=== PATIENT | male | born 1945 | race Caucasian/White ===

== ENCOUNTER 2020-05-27 17:01 | Inpatient (IN) | payer BC ==
[~2020-05-27] VITALS: Ht 177.8 cm; Wt 112.2 kg
--- NOTE | ~2020-05-27 | EKG ---
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
[2020-05-27 17:02] VITALS: BP 99/35
[2020-05-27 17:48] LABS: BE(vivo) 0.3 mmol/L (-2 to +3); HCO3 23.4 mmol/L (22.0-26.0); PO2 158.6 mmHg (80.0-100.0); pH 7.482 (7.360-7.450); sO2 99.2 % (92.0-98.0)
[2020-05-27 19:41] LABS: HEMATOCRIT 24.2 % (42.0-52.0); HEMOGLOBIN 7.9 gm/dL (14.0-18.0); MCH 31.2 pg (26.0-34.0); MCHC 32.7 g/dL (28.0-37.0); MCV 95.2 fL (80.0-100.0); PLATELET COUNT 158 thou/uL (150-400); RBC 2.55 mil/uL (4.50-6.00); RDW 19.3 % (10.5-14.5); WBC 8.8 thou/uL (4.0-11.0)
[2020-05-27 19:49] LABS: CALCIUM 8.2 mg/dL (8.5-10.1); CREATININE 3.4 mg/dL (0.7-1.3); POTASSIUM 3.4 mmol/L (3.5-5.1)
[2020-05-27 19:52] LABS: INR 2.1; PROTIME 21.8 Seconds (9.3-11.4)
[2020-05-27 19:55] LABS: ALBUMIN 1.5 g/dL (3.4-5.0); TOTAL BILIRUBIN 0.8 mg/dL (0.2-1.0); TOTAL PROTEIN 4.6 g/dL (6.4-8.2)
[2020-05-27 20:16] LABS: ANISOCYTOSIS 1+
[2020-05-27 23:16] VITALS: BP 108/49
--- NOTE | 2020-05-27 23:24 | NUR ---
ATTEMPTING TO GIVE REPORT TO 3W, NO ANSWER.
--- NOTE | 2020-05-27 23:29 | NUR ---
CONTINUING TO ATTEMPT TO CALL REPORT PLACED ON HOLD
[2020-05-28] VITALS (72 sets, daily range): BP systolic 72–153; BP diastolic 33–78
--- NOTE | 2020-05-28 03:28 | NUR ---
PT AOX1, TO SELF. PT HARD OF HEARING, NOTED TO HAVE IMPROVED RESPONSES WHEN SPOKEN INTO RIGHT EAR. PT DENIES PAIN AND SOB WHILE ON 3L O2. PT RESTING IN BED THROUGHOUT SHIFT, FREQUENT REPOSITIONING ENCOURAGED. PT NOTED TO HAVE PRESSURE TO BILATERAL HEELS, EXCORIATION TO SACRUM, OPENING WOUND ON ABDOMEN, AND DRAINAGE FROM PENIS. PHOTOGRAPHS IN CHART, WOUND CARE CONSULTED. PT REMAINS ON TELE, IRREGULAR RHYTHM, AFIB NOTED. THIS NURSE INSTRUCTED BY INDEPENDENT CONSULTANT TO CONTACT INDEPENDENT CONSULTANT IF PT HR GETS ABOVE 115-120S. ENCOURAGED PT TO NOTIFY STAFF FOR ALL NEEDS. CALL LIGHT WITHIN REACH, BED ALARM ON, BED IN LOWEST POSITION, FREQUENT MONITORING WILL CONTINUE.
[2020-05-28 05:45] LABS: HEMATOCRIT 25.6 % (42.0-52.0); HEMOGLOBIN 8.3 gm/dL (14.0-18.0); MCH 30.7 pg (26.0-34.0); MCHC 32.3 g/dL (28.0-37.0); MCV 95.1 fL (80.0-100.0); RBC 2.69 mil/uL (4.50-6.00); RDW 19.7 % (10.5-14.5); WBC 8.4 thou/uL (4.0-11.0)
[2020-05-28 06:02] LABS: CALCIUM 8.3 mg/dL (8.5-10.1); CREATININE 3.8 mg/dL (0.7-1.3); POTASSIUM 3.5 mmol/L (3.5-5.1)
--- NOTE | 2020-05-28 06:31 | NUR ---
Pt transferred from 3 to ICU room 239 @ 0600. 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 Pt was pale and unresponsive. Pt's sugar check was in the 20s and BPs sys in the 70s. Pt was given an amp of D50 and put on a bolus of D10 and rechecked in the 120s BS.Upon arrival pt was hypotensive in the 70-80s systolic with a map in the 50s. Sierra VASQUEZ was called for orders for levofed and notified of critical glucose from the blood draw before the Rapid Response. Pt on Levofed and currently being stabilized. Continue to monitor and plan of care
--- NOTE | 2020-05-28 06:33 | NUR ---
NOTIFIED BY LAB THAT PT WAS VERY LETHARGIC AND DIAPHORETIC, MINIMALLY RESPONSIVE. CALLED PATIENT ACCESS MANAGER, CHECKED BLOOD SUGAR, RESULT WAS "LOW" AND RECHECK WAS 22, LABS ALREADY DRAWN JUST PRIOR TO BS CHECK. AMP D50 PUSHED. BP LOW, NO TEMP, O2 SATS 98%, AFIB IN 90'S ON TELE. AFTER D50, STARTED D10 TO GRAVITY; PT MORE RESPONSIVE, ANSWERING SOME QUESTIONS. BP 70'S/30'S; ORDER FOR ICU TRANSFER, BEDSIDE REPORT GIVEN TO KIRSTY.
--- NOTE | 2020-05-28 07:13 | NUR ---
weather forecaster called for decreased loc, see weather forecaster flowsheet.
--- NOTE | 2020-05-28 09:58 | EKG ---
[facility] [place] [address] ELECTROCARDIOGRAM REPORT Name: ROSCOE GEORGE Room #: 239-P ADM IN M.R.#: [id number] Admission: 05/27/20 Attend Phys: Jean Garvey MD Discharge: Date of : 49 Report #: [id number] THIS REPORT FOR: cc: Aldo Benitez MD, Srinath MD Lundgren,Neri Mendoza MD [facility] ~ THIS REPORT FOR: //name// [facility] ED Test Date: 2020-05-27 Test Time: 17:54:01 Pat Name: ROSCOE GEORGE Department: Room: 239 Gender: M Ged [facility] 1945 Requested By: Ronnie Lizama Order Number: [id number] MD: Neri Da Silva Measurements Intervals [place] Rate: 100 P: [place]: QRS: 17 QRSD: 89 T: 156 QT: 328 QTc: 423 Interpretive Statements Atrial fibrillation RSR' in V1 or V2, right VCD Nonspecific ST and T wave abnormality No previous ECG available for comparison Electronically Signed On 05-28-2020 9:58:07 CDT by Neri Da Silva [email or web address] <ELECTRONICALLY SIGNED> By: Neri Da Silva MD, FACC 05/28/20 0958 1754 1754 Neri Da Silva MD, FAC /EPI
--- NOTE | 2020-05-28 10:02 | EKG ---
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 : 1945 Requested By: Neri Da Silva Order Number: [id number] MD: Neri Da Silva Measurements Intervals [place] Rate: 99 P: [place]: QRS: 21 QRSD: 94 T: 160 QT: 325 QTc: 417 Interpretive Statements Atrial fibrillation RSR' in V1 or V2, right VCD ST and T wave abnormality consider strain versus ischemia Compared to ECG 05/27/2020 17:54:01 No significant changes Electronically Signed On 05-28-2020 10:02:06 CDT by Neri Da Silva [email or web address] <ELECTRONICALLY SIGNED> By: Neri Da Silva MD, FACC 05/28/20 1002 Neri Da Silva MD, FACC /EPI
[2020-05-28 11:23] LABS: URINE BLOOD 3+ (Negative); URINE CLARITY CLOUDY; URINE COLOR YELLOW; URINE GLUCOSE-RANDOM* NEGATIVE (Negative); URINE KETONES NEGATIVE (Negative); URINE LEUKOCYTES 2+ (Negative); URINE NITRITE POSITIVE (Negative); URINE PROTEIN (DIPSTICK) 3+ (Negative); URINE UROBILINOGEN 0.2 E.U./dl (0.2-1.0)
[2020-05-28 11:24] LABS: ICTOTEST (BILI CONFIRMATORY) Negative (Negative); URINE BILIRUBIN NEGATIVE (Negative)
[2020-05-28 12:04] LABS: CASTS None Seen /LPF (None Seen); CRYSTALS None Seen /LPF (None Seen); SQUAMOUS None Seen /LPF (0-3); URINE RBC 3-10 Few /HPF (0-2); URINE WBC >25 Many /HPF (0-5)
--- NOTE | 2020-05-28 12:24 | 2DMMODE ---
[facility] [place] [address] 2 D/M-MODE ECHOCARDIOGRAM Name: ROSCOE GEORGE Room #: 239-P ADM IN M.R.#: [id number] Admission: 05/27/20 Attend Phys: Jean Garvey MD Discharge: Date of : 49 Report #: [id number] THIS REPORT FOR: cc: Aldo Benitez MD, Srinath MD Lundgren,Neri Mendoza MD [facility] ~ APPROVED REPORT Study performed: 05/28/2020 09:35:36 EXAM: Comprehensive 2D, Doppler, and color-flow Echocardiogram Patient Location: In-Patient Room #: 239 Status: routine BSA: 2.02 HR: 96 bpm Rhythm: Atrial Fibrillation Other Information Study Quality: Adequate Indications Atrial Fibrillation Hypertension/HDD 2D Dimensions IVSd: 16.08 (7-11mm) LVOT Diam: 24.76 (18-24mm) LVDd: 38.30 mm PWd: 16.51 (7-11mm) Ascending Ao: 36.34 (22-36mm) LVDs: 31.44 (25-40mm) Left Atrium: 56.38 (27-40mm) Aortic Root: 32.15 mm LV Single Plane 4CH: 42.35 % LV Single Plane 2CH: 31.19 % Volumes Left Atrial Volume (Systole) Single Plane 4CH: 59.46 mL Single Plane 2CH: 47.43 mL Aortic Valve AoV Peak Yrn.: 2.93 m/s AO Peak Gr.: 34.34 mmHg LVOT Max P.36 mmHg AO Mean Gr.: 17.87 mmHg LVOT Mean P.44 mmHg [facility] [address] [place] [address] 2 D/M-MODE ECHOCARDIOGRAM Name: ROSCOE GEORGE Room #: 239-P [facility] IN .R.#: [id number] Admission: 05/27/20 Attend Phys: Jean Garvey MD Discharge: Date of : 49 Report #: [id number] AO V2 Mean: 2.00 m/s LVOT Max V: 0.92 m/s AO V2 VTI: 59.68 cm LVOT Mean V: 0.54 m/s EV (VTI): 1.25 cm2 LVOT V1 VTI: 15.54 cm EV Vmax: 1.51 cm2 SV (LVOT): 74.80 mL Mitral Valve ERO: 5.39 mm2 MV E Max Yrn.: 1.42 m/s MV Max Yrn.: 5.57 m/s MR Radius: 0.38 cm MR Als. Yrn: 0.34 m/s MR Flow: 30.03 mL/s Pulmonary Valve PV Peak Yrn.: 0.91 m/s PV Peak Gr.: 3.36 mmHg Tricuspid Valve TR Peak Yrn.: 3.34 m/s TR Peak Gr.: 44.65 mmHg Left Ventricle Left ventricle is grossly normal size. There is normal LV segmental wall motion. Mild concentric left ventricular hypertrophy. The left ventricular systolic function is normal. The left ventricular ejection fraction is within the normal range. LVEF is 55-60%. Right Ventricle The right ventricle is normal size. The right ventricular systolic function is normal. Atria The left atrium size is normal. The right atrium size is normal. Aortic Valve Aortic valve leaflets are moderately calcified. Mild-moderate stenosis Trace aortic regurgitation. Peak PG 34 mmHg with mean PG 18 mmHg. Calculated aortic valve area is 1.3 cm2 Mitral Valve Mitral valve leaflets are mildly calcified. Mild mitral annular calcification Moderate mitral regurgitation. No evidence of mitral valve stenosis. Tricuspid Valve [facility] [address] [place] [address] 2 D/M-MODE ECHOCARDIOGRAM Name: ROSCOE GEORGE Room #: 239-P [facility] IN M.R.#: [id number] Admission: 05/27/20 Attend Phys: Jean Garvey MD Discharge: Date of : 49 Report #: [id number] The tricuspid valve is normal in structure. Mild tricuspid regurgitation. Estimated PAP 55 mmHg. Pulmonic Valve Pulmonic valve is grossly normal in structure. Trace pulmonic regurgitation. Great Vessels Aortic root is borderline dilated. The ascending aorta is normal in size. IVC is normal in size and collapses <50% with inspiration. Pericardium There is no pericardial effusion. <Conclusion> The left ventricular systolic function is normal. There is normal LV segmental wall motion. LVEF is 55-60%. LVH Aortic valve leaflets are moderately calcified. Mild-moderate stenosis. Trace insufficiency (Peak gradient 34 mmHg, mean PG 18 mmHg). Calculated aortic valve area is 1.3 cm2 Mitral valve leaflets are mildly calcified. Mild mitral annular calcification. Moderate mitral regurgitation. Mild tricuspid regurgitation. Estimated pulmonary artery pressure of 55 mmHg. There is no pericardial effusion. <ELECTRONICALLY SIGNED> By: Neri Da Silva MD, FACC 05/28/20 1223 1223 122 Neri Da Silva MD, FACC /INF
[2020-05-28 17:49] LABS: CALCIUM 8.2 mg/dL (8.5-10.1); POTASSIUM 3.8 mmol/L (3.5-5.1)
[2020-05-28 17:55] LABS: ALBUMIN 1.4 g/dL (3.4-5.0); MAGNESIUM 1.9 mg/dL (1.8-2.4); TOTAL BILIRUBIN 0.7 mg/dL (0.2-1.0); TOTAL PROTEIN 4.8 g/dL (6.4-8.2)
[2020-05-28 18:51] LABS: BE(vivo) -4.6 mmol/L (-2 to +3); HCO3 17.8 mmol/L (22.0-26.0); PCO2 24.9 mmHg (35.0-45.0); PO2 120.1 mmHg (80.0-100.0); pH 7.472 (7.360-7.450); sO2 98.6 % (92.0-98.0)
--- NOTE | 2020-05-28 19:30 | NUR ---
PT ALERT AND ORIENTED TIMES TWO. BP LOW LEVO GTT INFUSING. OTHER VSS, CRESPO CATH PLACED, VERY LITTLE URINE. PT DENIES PAIN. SPOKE WITH PT AND UPDATED ON CARE. WILL CONTINUE TO MONITOR.
[2020-05-28 22:03] LABS: HEMATOCRIT 25.3 % (42.0-52.0); HEMOGLOBIN 8.1 gm/dL (14.0-18.0); MCH 30.6 pg (26.0-34.0); MCHC 32.1 g/dL (28.0-37.0); MCV 95.1 fL (80.0-100.0); RBC 2.66 mil/uL (4.50-6.00); RDW 19.4 % (10.5-14.5); WBC 10.1 thou/uL (4.0-11.0)
[2020-05-29] VITALS (45 sets, daily range): BP systolic 84–135; BP diastolic 42–67
--- NOTE | 2020-05-29 03:57 | NUR ---
ASSESSMENT: PT REMAIN ALERT AND ORIENT TIMES TWO, FORGETFUL AT TIMES. FOLLOW SIMPLE COMMANDS. C/O RIGHT ARM/SHOULDER PAIN WITH MOVEMENT. LEFT ARE FISTULA +BRUIT AND THRILL. C/D/I. CRESPO WAS IRRIGATED R/T NO URINE OUTPUT. SMALL AMTS OF URINE IS PT'S BASELINE FOR NOW. AFIB WITH PVC'S PER MONITOR. LEVO AT 10 MCG/MIN. BS WAS 79 AT 2100. TALKED WITH PT'S THIS EVENING FOR AN UPDATE OF PT'S CONDITION. 2ND COVID TEST PENDING. LEFT UA FISTULA INTACT/PATENT. VSS, AFEBRILE. SLOW PROGRESS TOWARDS DC GOALS. WILL CONTINUE TO MONITOR.
[2020-05-29 05:28] LABS: HEMATOCRIT 25.2 % (42.0-52.0); HEMOGLOBIN 8.1 gm/dL (14.0-18.0); MCH 30.9 pg (26.0-34.0); MCHC 32.3 g/dL (28.0-37.0); MCV 95.6 fL (80.0-100.0); PLATELET COUNT 171 thou/uL (150-400); RBC 2.63 mil/uL (4.50-6.00); RDW 19.6 % (10.5-14.5); WBC 8.6 thou/uL (4.0-11.0)
[2020-05-29 05:42] LABS: ALBUMIN 1.2 g/dL (3.4-5.0); CALCIUM 8.2 mg/dL (8.5-10.1); CREATININE 4.3 mg/dL (0.7-1.3); PHOSPHORUS 5.5 mg/dL (2.5-4.9); POTASSIUM 4.3 mmol/L (3.5-5.1)
[2020-05-29 06:44] LABS: ABSOLUTE NEUTROPHILS 7.3 thou/uL (1.4-8.2); ANISOCYTOSIS 2+; PLATELET ESTIMATE NORMAL
--- NOTE | 2020-05-29 11:22 | EKG ---
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: [facility] : 1945 Requested By: Neri Da Silva Order Number: [id number] MD: Neri Da Silva Measurements Intervals [place] Rate: 95 P: [place]: QRS: 4 QRSD: 93 T: 143 QT: 348 QTc: 438 Interpretive Statements Atrial fibrillation Ventricular premature complex RSR' in V1 or V2, probably normal variant Nonspecific ST and T wave abnormality Compared to ECG 05/28/2020 08:47:02 Ventricular premature complex(es) now present ST and T wave abnormalities less pronounced Electronically Signed On 05-29-2020 11:22:08 CDT by Neri Da Silva [email or web address] <ELECTRONICALLY SIGNED> By: Neri Da Silva MD, FACC 05/29/20 1122 5 5 Neri Da Silva MD, FACC /EPI
--- NOTE | 2020-05-29 12:55 | HC ---
[facility] [place] [address] CONSULTATION Name: ROSCOE GEORGE Room #: 239-P ADM IN M.R.#: [id number] Admission: 05/27/20 Attend Phys: Jean Garvey MD Discharge: Date of : 49 Report #: [id number] THIS REPORT FOR: cc: Aldo Benitez MD, Srinath MD [place], Allen B. MD ~ DATE OF SERVICE: 05/28/2020 WOUND CARE CONSULTATION NOTE REASON FOR CONSULTATION: Pressure sores of sacrum and bilateral heels. HISTORY OF PRESENT ILLNESS: The patient is a 75-year-old gentleman with history of renal failure and a living donor kidney transplant in December of this year at [facility] transplant [place]. This was complicated by subsequent rejection and he has end-stage renal disease, on dialysis. The patient was admitted to the ICU at [facility] with altered mental status and confusion. He was noted to have pressure sores and Wound Care is consulted. PAST MEDICAL HISTORY: 1. End-stage renal disease with a living donor transplant kidney in December of this year and subsequent transplant rejection. 2. Diabetes mellitus type 2. 3. Obesity. 4. ____ signs of sepsis. ALLERGIES: CEFEPIME. REVIEW OF SYSTEMS: Not obtainable. PHYSICAL EXAMINATION: GENERAL: Shows an obtunded appearing obese, elderly gentleman, not responsive. ABDOMEN: Obese with a healed renal transplant incision in the right lower abdomen. EXTREMITIES: Examination of the patient's back shows the patient has fecal incontinence with some stool in the anal area. There is presently an area of skin breakdown in the sacral area with a small apparent stage 3 sacral pressure sore, measuring approximately 2 cm x 1 cm x 0.3 cm deep. There does not appear to be deep necrosis. This was treated with a Mepilex foam border. Examination of the upper extremities show multiple skin tears, fragile skin of the left arm, skin held together with Steri-Strips. Examination of the lower extremities shows dark discoloration of both heels in a 1.5 cm area consistent with unstageable deep tissue injury. [address] [address] CONSULTATION Name: ROSCOE GEORGE Room #: 239-P [facility] IN M.R.#: [id number] Admission: 05/27/20 Attend Phys: Jean Garvey MD Discharge: Date of : 49 Report #: [id number] IMPRESSION: 1. Renal transplant, on dialysis, status post rejected renal transplant. 2. Encephalopathy. 3. Skin tear of the left arm, repaired with Steri-Strips. 4. Fecal incontinence. 5. Obesity. 6. Diabetes mellitus type 2 with skin ulcer. 7. Sacral stage 3 pressure ulcer treated with a sacral Mepilex daily low air loss mattress. 8. Unstageable pressure ulcer with discoloration of both heels, Mepilex with bilateral foam boots. Wound care team will follow. <ELECTRONICALLY SIGNED> By: Tulio Phan MD 05/29/20 1255 1257 1342 Tulio Phan MD /nt
--- NOTE | 2020-05-29 20:11 | NUR ---
ASSUMMED PT CARE AT APPROXIMATELY 0700. PT A&O X1 AT BEGINNING OF SHIFT. PT A&0 X3 AT END OF SHIFT. PT INCREASED ALERTNESS AND ORIENTATION THROUGHOUT SHIFT. PT DROWSY. ASSESSMENT CHARTED. FALL PRECAUTIONS IN PLACE. PT DENIES HAVING CHEST PAIN. PT SOB ON EXERSION. O2 SAT STABLE. PT DENIES HAVING ACUTE PAIN. VITAL SIGNS STABLE. PT STATED HE WAS THIRSTY. PT TOLERATED TAKING SIPS OF WATER. INFORMED DR. SUTHERLAND. DIET ADVANCED TOLERATED. PT TOLERATED EATING JELLO. INFORMED PT AND PT'S FAMILY ABOUT POC. PT AND PT'S FAMILY STATED UNDERSTANDING AND DENIED HAVING FURTHER QUESTIONS. DC COVID ENHANCED PRECAUTIONS PER BELT GLASS SANDER DUE TO NEGATIVE TEST THAT RESULTED TODAY. CT OF ABM TODAY. INFORMED DR. JOSEPH AND DR. SCHAFFER OF RESULTS. BOTH STATED UNDERSTANDING C NO NEW ORDERS. PT COMFORTABLE IN BED. PT DENIES HAVING FURTHER CONCERNS.
[2020-05-30] VITALS (79 sets, daily range): BP systolic 91–152; BP diastolic 46–79
[2020-05-30 05:42] LABS: HEMATOCRIT 26.9 % (42.0-52.0); HEMOGLOBIN 8.4 gm/dL (14.0-18.0); MCH 30.4 pg (26.0-34.0); MCHC 31.4 g/dL (28.0-37.0); RBC 2.77 mil/uL (4.50-6.00); RDW 19.6 % (10.5-14.5); WBC 9.2 thou/uL (4.0-11.0)
--- NOTE | 2020-05-30 06:00 | NUR ---
A VERY DELIGHTFUL PT ORIENTED. FOLLOWS COMMANDS. REMAINS IN A FIB RATE 90 5 CC UO THIS SHIFT. WILL HAVE DIALYSIS THIS AM. BATHED PREVO BOOTS IN PLACE. PROGRESSING TOWARD GOALS. SPOKE WITH PTS LAST NIGHT. SHE IS ANXIOUS TO COME TO VISIT HER . SHE VOICED TO ME THAT SHE WAS VERY UPSET WITH [facility]. STATES PT HAD AN ANTIBIOTIC CEFOZOLIN AND A FEW DAYS LATER LOST HIS HEARING IN LEFT EAR. GIVEN MUCH MORAL SUPPORT. WILL CONT TO MONITOR
--- NOTE | 2020-05-30 06:00 | NUR ---
REMAINS ON LEVOPHED 15 MCG FOR BP SUPPORT
[2020-05-30 06:08] LABS: ALBUMIN 1.3 g/dL (3.4-5.0); CALCIUM 8.1 mg/dL (8.5-10.1); CREATININE 4.8 mg/dL (0.7-1.3); PHOSPHORUS 6.9 mg/dL (2.5-4.9); POTASSIUM 5.1 mmol/L (3.5-5.1)
--- NOTE | 2020-05-30 07:42 | HC ---
[facility] [place] [address] CONSULTATION Name: ROSCOE GEORGE Room #: 239-P ADM IN M.R.#: [id number] Admission: 05/27/20 Attend Phys: Tapan Frederick MD Discharge: Date of : 49 Report #: [id number] THIS REPORT FOR: cc: Aldo Benitez MD, Srinath MD Neufeld,Kojo Joseph MD ~ DATE OF SERVICE: 05/28/2020 NEPHROLOGY CONSULTATION REASON FOR CONSULTATION: End-stage renal disease and kidney transplant patient. HISTORY OF PRESENT ILLNESS: This is a 75-year-old male who was transferred on the day of admission from [facility] to the [place] [facility] and was admitted to the floor. He was transferred to the ICU. We are asked to see him at this time because of his renal history. There is no history available from [place]. There is no history of meaning that is available on the computerized records. I called the patient's to obtain the history that is listed below. The patient has longstanding diabetes mellitus type 2. He ended up with renal failure and has been on dialysis for about the past 2 years. He dialyzes using a left forearm fistula. In 12/2019, he received a living related kidney transplant from his son. That was done in the middle of December at [facility]. There were issues with the transplant from what sounds like the very beginning. He states there was rejection, even though it was a very well-matched kidney. What I was not able to get from her was whether there were issues with blood flow, blood pressure, or other potential surgical complications. Intermittently since that time, the kidney has functioned. As recently as the past week or 2, he was passing up to liter and a half of urine a day. In spite of this, he has continued to be on dialysis 3 times weekly, although he is only getting about 2-1/2 hours of dialysis each run. He has had issues with infections. This sounds to be both urinary tract infections as well as surgical site infections. Looking at his scars, he has had some redo work on his scars. She says he had some drains put in. She remembers him being infected with pseudomonas. He has been through multiple different antibiotics. Additional problems since transplant have been times when he had trouble eating. He had a PEG tube placed for a while, but that has now been removed. He has had problems with urinary retention. He has required Browne intermittently. She states that he recently had a Browne in, but it was to be taken out as a voiding trial, but I am uncertain of what happened with that. Except for a couple of short stints at [facility], the patient was hospitalized at [facility] from 12/2019 until basically this month. Ten days ago, he was transferred to [facility]. He has been doing his dialysis there. [address] [address] CONSULTATION Name: ROSCOE GEORGE Room #: 239-P ADM IN M.R.#: [id number] Admission: 05/27/20 Attend Phys: Tapan Frederick MD Discharge: Date of : 49 Report #: [id number] She states that it was recently as 4 days ago today and 3 days ago, his transfer to the Emergency Room that he was up in a chair, talking easily. He was eating well and states that he actually felt fairly well. She states by the time she talked to him two days later, which was the day prior to admission that he was not feeling as well. He was not eating as well. He was not talking as well and she was concerned that he was looking worse. The following day, he was transferred here. At this point, I cannot get anything meaningful from the patient. I am able to get him to awaken enough to mumble a word or 2, but there is no meaningful history or response. He was very hypotensive. He had pressures as low as the 70s when he was transferred to the ICU. It looks like at one point in the Emergency Room, he got at 250 mL bolus of saline, but he has not gotten any other volume replacement. He was started on Levophed and currently his blood pressure is significantly better as will be noted below. He has no Browne catheter in place. PAST MEDICAL HISTORY: Longstanding diabetes mellitus, ending up in the end-stage renal disease. She states he has had some valvular heart disease and he just had an echo here, which suggested aortic stenosis. No coronary artery disease. He has developed some decubitus wounds over this long period of time. He has had trouble with bladder emptying as noted above. MEDICATIONS: On admission, verified that he has been on cyclosporine 100 mg twice a day and prednisone 5 mg a day as his immunosuppressives. It does not sound that he was on any mycophenolate. She thinks that he originally was on some tacrolimus, but could not tell me why he was switched from tacrolimus to cyclosporine. ALLERGIES AND INTOLERANCES: To CEFEPIME. FAMILY HISTORY: Noncontributory. SOCIAL HISTORY: The patient is and his provided all this aforementioned history. They live in [place]. REVIEW OF SYSTEMS: Basically as per the history of present illness. He did go through a lot of emotional times with difficulty eating and stating that he did not want to continue living in a like when he was going through surgeries, placement of drains, PEG tube, Browne, and all of his rehab attempts. She did state that he was significantly better as noted above, as recently as 4 days ago. [facility] [address] [place] [address] CONSULTATION Name: ROSCOE GEORGE Room #: 239-P [facility] IN .R.#: [id number] Admission: 05/27/20 Attend Phys: Tapan Frederick MD Discharge: Date of : 49 Report #: [id number] PHYSICAL EXAMINATION: GENERAL: A 75-year-old male seen in the Intensive Care Unit. He is obtunded, but will arouse minimally as noted above. VITAL SIGNS: On Levophed at 30, his blood pressure is 131/64, heart rate is 93, oxygen saturation 100%, respiratory rate 14, temperature 36.9 degrees centigrade. HEENT: Shows pupils are equal and reactive. Sclerae nonicteric. Oral mucosa is dry. NECK: Supple without adenopathy, thyromegaly, JVD or bruit. CHEST: Shallow, but clear bilaterally with symmetrical breath sounds. HEART: Has an irregularly irregular rhythm with his chronic atrial fibrillation. ABDOMEN: Soft. There are minimal bowel sounds present. Transplant kidney is in the right iliac fossa. The wound currently is well-healed without drainage. Bladder does appear to be distended on percussion. EXTREMITIES: Show 1+ bilateral lower extremity edema. He has a faint left forearm radiocephalic fistula in place. There are photographs in the chart of some of his decubitus wounds, but I did not examine all of those. LABORATORY DATA: From this morning, sodium 135, potassium 3.5, chloride 100, bicarbonate 24, BUN 44, creatinine 3.8, AST 25, ALT 11, calcium 8.3, total protein 4.5, albumin 1.5. Lactate was 1.0, INR is 2.1. White count 8.4, hemoglobin 8.3, hematocrit 25.6, platelets 171,000. Differential on the white count 73 segs, 7 bands, 12 lymphs, 8 monos. COVID was negative. Urine was not done. Blood gas, pH 7.48, pCO2 of 32, pO2 of 158. ASSESSMENT: 1. Kidney transplant patient with a very complex past 5 months history. If he was truly making a liter and a half of urine and showing some clearance on low dose cyclosporine and prednisone, I think it is certainly worth continuing his immunosuppressives. If we can get him to take in by mouth, I will give him oral cyclosporine. With his low blood pressure, I will get him some stress dose steroids at this time. 2. End-stage renal disease, recently requiring dialysis. He certainly does not need it today from either laboratory or a volume standpoint. I will see what his labs do over the next couple of days as he did get 2-1/2 hours of dialysis yesterday. 3. Hypotension. This was rather profound. He is on Levophed now. He needs some volume challenge. I will start with 500 mL of normal saline and see how he responds to that. Certainly, there is concern of another infection. Blood cultures have been drawn, but I think the primary concern is his bladder and urine. We need to check that. We should be able to taper his pressors going forward. 4. Urinary retention, which has been a recurring problem since his transplant. [facility] [address] [place] [address] CONSULTATION Name: ROSCOE GEORGE Room #: 239-P ADM IN M.R.#: [id number] Admission: 05/27/20 Attend Phys: Tapan Frederick MD Discharge: Date of : 49 Report #: [id number] We will get a Browne catheter back in. We will check urine studies including a urinalysis and culture. 5. Atrial fibrillation, chronic. 6. Longstanding type 2 diabetes mellitus. 7. Chronic debility with 5 months of hospitalizations and rehabilitation attempts with varying results. Again, he was doing fairly well four days ago, but he has started to decline a couple of days ago. Hopefully, we can get him back to the improved status. 8. Anemia of chronic disease after his lengthy hospitalizations and numerous infections. PLAN: 1. Bolus of IV normal saline. 2. Taper his pressors as able. 3. We will try to get him to take some oral cyclosporine. 4. Stress dose steroids IV. 5. Place a Browne catheter. 6. Check urine studies. 7. Follow up on his cultures. 8. Repeat labs. 9. Very close monitoring of this chronically and critically ill patient. <ELECTRONICALLY SIGNED> By: Kojo Dominguez MD 05/30/20 0742 1043 1330 Kojo Dominguez MD /nt
--- NOTE | 2020-05-30 10:35 | NUR ---
RD consult received. Pt with mental retardation, admit from long-term, +covid dx pneumonia dx. So far, has tolerated meals, eating 80-100%. Wt is obese, BMI 36.8. On vitamin/mineral supplementation for COVID protocol. BG levels elevated 215- on steroid. Will add carb control to diet order, otherwise low nutrition risk.
--- NOTE | 2020-05-30 10:37 | NUR ---
Consider start accuchecks. Pt had BG of 215, on steroid.
--- NOTE | 2020-05-30 11:20 | NUR ---
cm received phone call from bedside nurse stating already sent message to hospitalist that kidney dr and transplant team at [facility] is wanting tess transferred.
[2020-05-30] MEDS ORDERED: EPOGEN20000 UNI2 SUBQ (16:00)
[2020-05-30] MEDS ORDERED: FLORANEX TABLE1 EACH PO (16:00)
[2020-05-30] MEDS ORDERED: TYLENOL325 MG PO (16:00)
[2020-05-30] MEDS ORDERED: NORVASC 2.5 MG2.5 M1 PO (16:02)
[2020-05-30] MEDS ORDERED: XANAX 0.25 MG0.25 MG PO (16:02)
[2020-05-30] MEDS ORDERED: CALCIUM CARBON500 MG PO (16:04)
[2020-05-30] MEDS ORDERED: LIPITOR10 MG PO (16:04)
[2020-05-30] MEDS ORDERED: ATOVAQUONE750 MG/5 M PO (16:05)
[2020-05-30] MEDS ORDERED: COREG12.5 MG PO (16:06)
[2020-05-30] MEDS ORDERED: VITAMIN D250 MCG PO (16:08)
[2020-05-30] MEDS ORDERED: SANDIMMUNE100 MG PO (16:09)
[2020-05-30] MEDS ORDERED: FLONASE 0.05%50 MCG NASAL (16:10)
[2020-05-30] MEDS ORDERED: PROSCAR 5MG TABL5 M1 PO (16:10)
[2020-05-30] MEDS ORDERED: FUROSEMIDE 40 M40 MG PO (16:11)
[2020-05-30] MEDS ORDERED: HYDRALAZINE HC100 MG PO (16:11)
[2020-05-30] MEDS ORDERED: NYSTATIN100000 UNI SW&SWALLOW (16:12)
[2020-05-30] MEDS ORDERED: LOPERAMIDE2 MG PO (16:12)
[2020-05-30] MEDS ORDERED: MIRALAX119 GM PO (16:13)
[2020-05-30] MEDS ORDERED: PAROXETINE HCL20 MG PO (16:13)
[2020-05-30] MEDS ORDERED: PREDNISONE 5 MG5 M1 PO (16:13)
[2020-05-30] MEDS ORDERED: PROTONIX40 M2 PO (16:13)
[2020-05-30] MEDS ORDERED: SENNA PLUS TAB1 EACH PO (16:14)
--- NOTE | 2020-05-30 16:18 | NUR ---
FAXED CLINICAL UPDATE TO [facility] RECEIVED CONFIRMATION AND LEFT MSG WITH RIANA IN ADM.
[2020-05-30] MEDS ORDERED: RENVELA0.8 GM PO (16:30)
[2020-05-30] MEDS ORDERED: SIMETHICON CHEW80 M1 PO (16:30)
[2020-05-30] MEDS ORDERED: FLOMAX0.4 MG PO (16:31)
[2020-05-30] MEDS ORDERED: TERAZOSIN HCL5 MG PO (16:31)
[2020-05-30] MEDS ORDERED: DESYREL150 MG PO (16:32)
[2020-05-30] MEDS ORDERED: SSD CREAM 1% 5050 GM TOP (16:32)
[2020-05-30] MEDS ORDERED: A AND D OINTM42.5 GM TOP (16:33)
[2020-05-30] MEDS ORDERED: CATHFLO ACT2 MG/VIA1 INJECTION (16:35)
[2020-05-30] MEDS ORDERED: GLUCAGEN1 M2 IM (16:36)
[2020-05-30] MEDS ORDERED: LANTUS SUBQ (16:37)
[2020-05-30] MEDS ORDERED: GLUCOSE4 GM PO (16:37)
[2020-05-30] MEDS ORDERED: JANTOVEN5 MG PO (16:38)
[2020-05-30] MEDS ORDERED: MODAFINIL100 MG PO (16:38)
[2020-05-30] MEDS ORDERED: TRAMADOL 50 MG50 MG PO (16:38)
[2020-05-30] MEDS ORDERED: HUMALOG100 UNIT/1 SUBQ (16:40)
--- NOTE | 2020-05-30 17:03 | NUR ---
ASSUMED CARE AT 0700. PATIENT AFEBRILE. NO BM. HEMODIALYSIS 5220-7044. 0.5 L PULLED OFF THE PATIENT DURING HEMODIALYSIS. SIGNIICANT OTHER WAS UPDATED AND EDUCATED ON PATIENT CONDITION AND PLAN OF CARE AT 0800. PATIENT ON ROOM AIR. LEVOPHED GTT FOR BP SUPPORT. PATIENT TO BE TRANSFERRED TO [facility] [place]. AWAITING OPEN ICU BED. TRANSFER PAPERWORK COMPLETED. PATIENT PROGRESSING TOWARDS THE PLAN OF CARE.
[2020-05-31] VITALS (95 sets, daily range): BP systolic 104–155; BP diastolic 50–80
[2020-05-31 01:06] LABS: HEPATITIS B SURFACE AG Negative (Negative)
[2020-05-31 09:44] LABS: HEMATOCRIT 23.3 % (42.0-52.0); HEMOGLOBIN 7.5 gm/dL (14.0-18.0); MCH 30.3 pg (26.0-34.0); MCHC 32.4 g/dL (28.0-37.0); MCV 93.5 fL (80.0-100.0); RBC 2.49 mil/uL (4.50-6.00); RDW 19.2 % (10.5-14.5); WBC 6.1 thou/uL (4.0-11.0)
[2020-05-31 10:01] LABS: CALCIUM 7.7 mg/dL (8.5-10.1); CREATININE 3.9 mg/dL (0.7-1.3); MAGNESIUM 1.9 mg/dL (1.8-2.4); POTASSIUM 3.8 mmol/L (3.5-5.1)
--- NOTE | 2020-05-31 10:10 | NUR ---
spring spoke with addis at [facility] transfer team. tess is still on our waiting list, [facility] will call when bed opens up for him, if he has changes in status call with updates to [phone].
--- NOTE | 2020-05-31 11:37 | NUR ---
0820 - PATIENT'S WAS UPDATED AND EDUCATED ON PLAN OF CARE AND PATIENT CONDITION.
--- NOTE | 2020-05-31 15:39 | EKG ---
[facility] [place] [address] [place] [address] ELECTROCARDIOGRAM REPORT Name: ROSCOE GEORGE Room #: 239-P ADM IN M.R.#: [id number] Admission: 05/27/20 Attend Phys: Tapan Frederick MD Discharge: Date of : 49 Report #: [id number] THIS REPORT FOR: cc: Aldo Benitez MD, Srinath MD Santiago,Irvin MACKAY [facility] ~ THIS REPORT FOR: //name// [facility] Test Date: 2020-05-31 Test Time: 15:14:05 Pat Name: ROSCOE GEORGE Department: Room: 239 P Gender: M Director Of Guidance: JOEL : 1945 Requested By: Tapan Frederick Order Number: [id number] MD: Irvin Romano Measurements Intervals [place] Rate: 91 P: [place]: QRS: -7 QRSD: 96 T: 168 QT: 350 QTc: 431 Interpretive Statements Atrial fibrillation Abnormal R-wave progression, early transition Repol abnrm suggests ischemia, lateral leads Compared to ECG 05/29/2020 08:06:10 Early repolarization now present Possible ischemia now present Ventricular premature complex(es) no longer present ST (T wave) deviation no longer present Electronically Signed On 05-31-2020 15:39:11 CDT by Irvin Romano [email or web address] <ELECTRONICALLY SIGNED> By: Irvin Romano MD, FACC 05/31/20 1539 13 151 Irvin Romano MD, [facility] /EPI
[2020-06-01] VITALS (97 sets, daily range): BP systolic 94–198; BP diastolic 41–155
[2020-06-01 05:31] LABS: HEMATOCRIT 21.8 % (42.0-52.0); HEMOGLOBIN 7.1 gm/dL (14.0-18.0); MCH 30.9 pg (26.0-34.0); MCHC 32.8 g/dL (28.0-37.0); MCV 94.2 fL (80.0-100.0); RBC 2.31 mil/uL (4.50-6.00); RDW 18.9 % (10.5-14.5); WBC 4.4 thou/uL (4.0-11.0)
[2020-06-01 05:44] LABS: CALCIUM 7.9 mg/dL (8.5-10.1); CREATININE 4.2 mg/dL (0.7-1.3); MAGNESIUM 2.1 mg/dL (1.8-2.4); POTASSIUM 4.2 mmol/L (3.5-5.1)
--- NOTE | 2020-06-01 06:45 | NUR ---
PATIENT REMAINS A/O X3. DENIES SOB, N/V, C/P. AFEBRILE. LEVOPHED TITRATED OFF.VSS. CRESPO IN PLACE WITH NO U/O. BATH PRVIDED. CRESPO CARE PROVIDED. FAMILY UPDATED. [facility] UPDATED. STILL WAITING FOR A BED. DENIES NEEDS. REPORT GIVEN ONCPRACHI DON
--- NOTE | 2020-06-01 07:52 | NUR ---
0700>>> Bedside shift report received, care assumed. Pt is awake laying in bed. Denies pain or SOA. 0730>>> Aseessments done as documented. Dialysis nurse present getting patient ready for dialysis.
[2020-06-01 09:55] LABS: % SATURATION 109 % (20-39); IRON 93 ug/dL (65-175); TIBC 85 ug/dL (250-450)
--- NOTE | 2020-06-01 10:01 | NUR ---
cm spoke with [facility], they are still at high vol and have no beds. he still on waiting list and will call when have bed open up. have been calling icu for updates daily.
--- NOTE | 2020-06-01 18:42 | NUR ---
TOOK OVER CARES FROM ISABELLA DON AT 1600. SPOKE WITH NADIR. WAITING FOR BED PLACEMENT AT [facility].
[2020-06-02] VITALS (100 sets, daily range): BP systolic 80–136; BP diastolic 44–82
[2020-06-02 05:38] LABS: CALCIUM 7.9 mg/dL (8.5-10.1); POTASSIUM 3.5 mmol/L (3.5-5.1)
[2020-06-02 05:43] LABS: HEMOGLOBIN 6.9 gm/dL (14.0-18.0)
[2020-06-02 05:46] LABS: HEMATOCRIT 21.5 % (42.0-52.0); MCH 30.7 pg (26.0-34.0); MCHC 32.3 g/dL (28.0-37.0); MCV 94.9 fL (80.0-100.0); RBC 2.27 mil/uL (4.50-6.00); RDW 18.9 % (10.5-14.5); WBC 4.3 thou/uL (4.0-11.0)
[2020-06-02 06:06] LABS: CREATININE 2.8 mg/dL (0.7-1.3)
--- NOTE | 2020-06-02 09:16 | NUR ---
Assessmets done as documented. Pt has occasional confusion. Denies pain. called, updated on pt's condition with regards to transfer to [facility] and whether she can visit pt. told we are waiting on [facility] to call us. All questions answered. Pt ate 50% of breakfast. Dr Barrientos ROUNDING ON PT. See new orders. Will continue to monitor.
--- NOTE | 2020-06-02 16:10 | NUR ---
PT'S CALLED, INQUIRED REGARDING PT STATUS AND THAT HE IS CONFUSED WHEN SHE IS SPEAKING WITH HIM ON THE PHONE. UPDATED HER ON PT HAVING A JUST DISCOVERED URINARY TRACT INFECTION AND BEING STARTED ON ANTIBIOTICS EARLY THIS AM. ALSO, DISCUSSED MEDICATIONS, CURRENT LABS, TODAY'S MEAL INTAKE AND HE IS BEING REORIENTED WHEN STAFF IN ROOM. ALL QUESTIONS ANSWERED TO HER SATISFACTION.
--- NOTE | 2020-06-02 16:25 | NUR ---
CHERIE ROSEN'D, WELL TOLERATED.
[2020-06-02 21:07] LABS: HEMATOCRIT 25.5 % (42.0-52.0); HEMOGLOBIN 8.4 gm/dL (14.0-18.0)
[2020-06-03] VITALS (53 sets, daily range): BP systolic 87–139; BP diastolic 47–78
[2020-06-03 05:19] LABS: HEMATOCRIT 23.8 % (42.0-52.0); HEMOGLOBIN 7.8 gm/dL (14.0-18.0); MCH 30.9 pg (26.0-34.0); MCHC 32.9 g/dL (28.0-37.0); MCV 93.9 fL (80.0-100.0); RBC 2.54 mil/uL (4.50-6.00); RDW 18.2 % (10.5-14.5); WBC 6.8 thou/uL (4.0-11.0)
[2020-06-03 05:27] LABS: CALCIUM 8.2 mg/dL (8.5-10.1); CREATININE 3.3 mg/dL (0.7-1.3); POTASSIUM 3.9 mmol/L (3.5-5.1)
--- NOTE | 2020-06-03 07:46 | EKG ---
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: HARPREET : 1945 Requested By: Howard Wilkins Order Number: [id number] MD: Irvni Romano Measurements Intervals [place] Rate: 90 P: [place]: QRS: 7 QRSD: 98 T: 176 QT: 358 QTc: 438 Interpretive Statements Atrial fibrillation RSR' in V1 or V2, probably normal variant Repol abnrm suggests ischemia, diffuse leads Compared to ECG 05/31/2020 15:14:05 RSR' in V1 or V2 now present Possible ischemia still present Electronically Signed On 06-03-2020 7:45:51 CDT by Irvin Romano [email or web address] <ELECTRONICALLY SIGNED> By: Irvin Romano MD, FACC 06/03/20744 8 8 Irvin Romano MD, [facility] /EPI
--- NOTE | 2020-06-03 10:12 | NUR ---
per dr lui tess can be in tele bed when transfers to [facility]. spring called [facility] transfer dr one line [phone] spoke with charles with updates. we are hoping will have tele bed later today, it might be much later though, will call icu when have a bed per charles. spring spoke with anthony via phone call and she cont to agree with dcp.
--- NOTE | 2020-06-03 17:37 | NUR ---
Patient drowsy throughout the day. Dialysis this am, tolerated well. Heart rate and rhythm stable a fib. Blood pressures stable. Woke for lunch, fed patient about 70% Dressing changes done. Pictures done. Report called to [facility] [address] Patient cell phone, prison classification counselor, 20$ from security all sent with patient. EMS here to transport patient to [facility]. called and updated on patient condition. See docuemtation on interventions for assessment details.
== END 2020-06-03 18:13 | disposition short-term general hospital (02) | DRG 871 ==
LOC: ER 17:01 → EROBS 22:35 → ICU 22:35 → 3W 23:59 → ICU 05-28 06:04
PROVIDERS: Emergency Medicine; Hospitalist; Internal Medicine; Internal Medicine Nephrology; Nurse Practitioner Family; ADMIT Internal Medicine; ATTEND Internal Medicine
PROC: 02HV33Z Insertion of Infusion Device into Superior Vena Cava, Percutaneous Approach (ICD-10-PCS; principal; 2020-05-27)
PROC: 30233N1 Transfusion of Nonautologous Red Blood Cells into Peripheral Vein, Percutaneous Approach (ICD-10-PCS; 2020-06-02)
DX: A41.50 Gram-negative sepsis, unspecified (principal); L89.153 Pressure ulcer of sacral region, stage 3; N18.6 End stage renal disease; R65.21 Severe sepsis with septic shock; G92 Toxic encephalopathy; E43 Unspecified severe protein-calorie malnutrition; G93.40 Encephalopathy, unspecified; I48.21 Permanent atrial fibrillation; N12 Tubulo-interstitial nephritis, not specified as acute or chronic; Z94.0 Kidney transplant status; I12.0 Hypertensive chronic kidney disease with stage 5 chronic kidney disease or end stage renal disease; E11.22 Type 2 diabetes mellitus with diabetic chronic kidney disease; I95.9 Hypotension, unspecified; R33.9 Retention of urine, unspecified; D63.8 Anemia in other chronic diseases classified elsewhere; E66.9 Obesity, unspecified; E11.622 Type 2 diabetes mellitus with other skin ulcer; L89.620 Pressure ulcer of left heel, unstageable; L89.610 Pressure ulcer of right heel, unstageable; N40.1 Benign prostatic hyperplasia with lower urinary tract symptoms; R33.8 Other retention of urine; B96.5 Pseudomonas (aeruginosa) (mallei) (pseudomallei) as the cause of diseases classified elsewhere; Z20.828 Contact with and (suspected) exposure to other viral communicable diseases; S41.112A Laceration without foreign body of left upper arm, initial encounter; X58.XXXA Exposure to other specified factors, initial encounter; Y93.89 Activity, other specified; Y92.89 Other specified places as the place of occurrence of the external cause; Y99.8 Other external cause status; Z99.2 Dependence on renal dialysis; Z68.35 Body mass index [BMI] 35.0-35.9, adult
CPT/HCPCS: 10078; 10080; 10203; 32100; 85076